=== PATIENT | female | born 1940 | race Caucasian/White ===

== ENCOUNTER 2019-12-24 08:43 | Emergency (ER) | payer OTHER ==
[~2019-12-24] VITALS: Ht 165.1 cm; Wt 65.8 kg
[~2019-12-24 08:43] MED LIST: PREVACID30 MG PO
[2019-12-24] MEDS ORDERED: ARICEPT5 MG PO (08:54)
[2019-12-24] MEDS ORDERED: VITAMIN D3250 MC1 PO (08:55)
== END 2019-12-24 13:49 | disposition home or self-care (01) ==
LOC: ER 08:43
DX: M54.16 Radiculopathy, lumbar region (principal); M54.32 Sciatica, left side